=== PATIENT | female | born 1965 | race Caucasian/White ===

== ENCOUNTER 2019-01-15 11:19 | Day surgery (SDC) | payer OTHER ==
[~2019-01-15] VITALS: Ht 167.6 cm; Wt 70.1 kg
[2019-01-15 11:58] VITALS: Ht 167.6 cm; Wt 70.1 kg
[2019-01-15] MEDS ORDERED: NO MEDS. (12:09)
[2019-01-15 12:42] VITALS: BP 107/67; PULSE 59; RESP 20
[2019-01-15] MEDS ORDERED: FENTAnyl 50 MCG/ML VIAL ONE (13:47)
[2019-01-15] MEDS ORDERED: MIDAZOLAM 1 MG/ML 2 ML INJ ONE ×2 (13:47)
[2019-01-15 14:07] VITALS: BP 129/64; PULSE 66; RESP 16
--- NOTE | 2019-01-15 16:27 | CONS ---
DATE OF ADMISSION: 01/15/2019 DATE OF CONSULTATION: PATIENT NAME: JADE ALONZO Dear Dr. Velez: I thank you very much for this kind referral. HISTORY OF PRESENT ILLNESS: Ms. Jade Alonzo is a 54-year-old female patient who has been refer red to me for further evaluation of change in the bowel habit. No past history of colon neoplasm. T he patient never had screening colonoscopy. The patient has family history of colon cancer. The pat ient's dad had colon cancer. No upper abdominal pain. Not on nonsteroidal anti-inflammatory agents. No history of gallstones or liver disease. Not a hypertensive or diabetic. No heart disease, lung problem, or kidney disease. SOCIAL HISTORY: Nonsmoker. No alcohol abuse. FAMILY HISTORY: The patient's father had colon cancer. ALLERGIES: NO DRUG ALLERGIES. MEDICATIONS: None. PHYSICAL EXAMINATION: VITAL SIGNS: She is 5 feet 6 inches tall and weighs 155 pounds. HEART: Normal heart sounds. LUNGS: Clear. ABDOMEN: Soft, no masses. Normal bowel sounds. NEUROLOGIC: Normal neurological exam. IMPRESSION: 1. Change in the bowel habit. 2. Family history of colon cancer. 3. The patient never had screening colonoscopy. PLAN: Screening colonoscopy. The procedure and possible complications are well explained to the patient. She understands and cons ents to the procedure. I thank you once again. With warmest personal regards, Dictated By: TARIK PAUL MD GD/NTS Conf#: [id number] DID#: [id number] CC: Dr. Velez;*EndCC*
== END 2019-01-15 14:48 | disposition home or self-care (01) ==
LOC: GIL 11:19
PROVIDERS: ATTEND Internal Medicine Gastroenterology
DX: Z12.11 Encounter for screening for malignant neoplasm of colon (principal); K64.8 Other hemorrhoids
CPT/HCPCS: 45378; 84703; J2250; J3010